=== PATIENT | female | born 1985 | race Caucasian/White ===

== ENCOUNTER 2021-07-05 17:59 | Emergency (ER) | payer OTHER ==
[~2021-07-05] VITALS: Ht 170.2 cm; Wt 109.8 kg
[~2021-07-05 17:59] MED LIST: FLINTSTONES CO1 EACH PO; FLINTSTONES1 EAC1 PO; HEARTBURN RELIE75 M1 PO; MELOXICAM15 MG PO; PROAIR HFA8.5 GM INH
[2021-07-05] MEDS ORDERED: ELURYNG VAGINA1 EACH VAGINAL (22:53)
== END 2021-07-06 00:30 | disposition home or self-care (01) ==
LOC: ED 17:59
DX: S96.912A Strain of unspecified muscle and tendon at ankle and foot level, left foot, initial encounter (principal); J45.909 Unspecified asthma, uncomplicated; Z87.891 Personal history of nicotine dependence; Z79.899 Other long term (current) drug therapy; X50.9XXA Other and unspecified overexertion or strenuous movements or postures, initial encounter
CPT/HCPCS: 73630; 99283-25

== ENCOUNTER 2022-03-13 19:26 | Emergency (ER) | payer OTHER ==
[~2022-03-13] VITALS: Ht 167.6 cm; Wt 110.5 kg
[~2022-03-13 19:26] MED LIST changes: +ELURYNG VAGINA1 EACH VAGINAL
[2022-03-13] MEDS ORDERED: PYRIDIUM200 MG PO (20:41)
[2022-03-13] MEDS ORDERED: MACRODANTIN100 MG PO (20:41)
== END 2022-03-13 20:56 | disposition home or self-care (01) ==
LOC: ED 19:26
DX: N39.0 Urinary tract infection, site not specified (principal); J45.909 Unspecified asthma, uncomplicated; Z87.891 Personal history of nicotine dependence; Z79.899 Other long term (current) drug therapy
CPT/HCPCS: 81001; 84703; 87088; 99283

== ENCOUNTER 2022-05-27 20:06 | Observation (INO) | payer OTHER ==
[~2022-05-27] VITALS: Ht 167.6 cm; Wt 113.8 kg
[~2022-05-27 20:06] MED LIST changes: +MACRODANTIN100 MG PO; +PYRIDIUM200 MG PO
--- NOTE | 2022-05-27 21:57 | EKG ---
[facility] [address] [facility] [place] [address] Signed Sinus tachycardia with short TX ST \T\ T wave abnormality, consider inferior ischemia Abnormal ECG No previous ECGs available Confirmed by JOHANNE WALLER MD ([id number]) on 05/27/2022 9:56:49 PM Electronically Signed By: JOHANNE WALLER MD 05/27/22 2157 PATIENT NAME: JUSTYN SEXTON Electrocardiogram DATE OF : 89 PHYSICIAN: JOHANNE WALLER MD REPORT #: [id number] REPORT IS CONFIDENTIAL AND NOT TO BE RELEASED WITHOUT AUTHORIZATION
--- NOTE | 2022-05-28 02:20 | NUR ---
PT ARRIVED TO CCU ROOM 127 FROM ED. PT IS ALERT AND ORIENTED, TRANSFERS SELF TO BED FROM [facility]. HR 140'S CURRENTLY. PT RESUMES HOUR LONG MED THAT HAD BEEN BROUGHT DOWN FROM ED UPON ARRIVAL. PT ADMITTED FOR ASTHMA EXACERBATION AND SEPSIS. PT REPORTS THAT SHE STARTED WHEEZING APPROX 1730 YESTERDAY EVENING AND HER INHALERS WERE NOT HELPING. LUNGS HAVE WHEEZES THROUGHOUT. RR 20. WHEN ASKED IF SHE FEELS LIKE SHE IS IMPROVING AT ALL SHE STATES "A LITTLE, LONG IM DOING THE TREATMENTS BUT SOON THEYRE DONE I START UP AGAIN". PT UP TO BATHROOM TO VOID 200ML, TOLERATED WELL, DID NOT BECOME ANY MORE LABORED THAN SHE ALREADY WAS. PT ABLE TO TALK AND CARRY ON A CONVERSAION WITHOUT DIFFICULTY, WITH NEB CURRENTLY RUNNING. CALL LIGHT IN HAND, PT STATES SHE WILL CALL FOR ASSIST GETTING UP.
--- NOTE | 2022-05-28 04:11 | NUR ---
UP TO BATHROOM TO VOID, HR UP TO 160 WHILE UP, BACK DOWN TO 130'S ONCE IN BED. VOID 250 ML LIGHT CLEAR URINE. RT IN TO DO NEB TX, ASSESSMENT DONE WELL.
--- NOTE | 2022-05-28 07:50 | NUR ---
RN IN ROOM TO ASSESS PT AND ADMINISTER SCHEDULED MEDICATIONS. PT SITTING UP IN BED BACK FROM AMBULATION FROM BATHROOM. HR REMAINS HIGH IN 130'S SITTING IN BED, PT REPORTS PAIN WITH INSPIRATION HOWEVER STATES THAT IT IS IMPROVING FROM YESTERDAY. SP02 95% ON ROOM AIR, WHEEZING EXP AND INSP THROUGHOUT ALL LUNG GRANADOS. LEFT IV SITE PAINFUL AND UNABLE TO FLUSH, DC'D. NEW IV PLACED IN LEFT AC 20G BY POCKET AND PULLEY MACHINE OPERATOR. PT AFEBRILE. REPORTS INCREASED APPETITE AND REQUESTS REGULAR DIET. BLOOD CLOTS NOTED IN URINE VOID. PT DENIES PAIN WITH URINATION HOWEVER SHE DID HAVE UTI APPROX 2 MONTHS AGO AND DID NOT FINISH HER ABX COURSE. PT STATES SHE HAS NUVARING IN PLACE FOR BIRTHCONTROL AND IS NOT DUE TO HAVE PERIOD FOR 2 WEEKS. SHE IS CONCERNED ABOUT VAGINAL BLEEDING THAT IS OCCURING - DENIES HISTORY OF THIS, DENIES NEW SEXUAL PARTNERS.
--- NOTE | 2022-05-28 09:42 | NUR ---
RN IN ROOM TO ADMINISTER SCHEDULED ABX. PT RESTING IN BED ON PHONE. IMPROVED AUDIBLE WHEEZING. PT REPORTS LUNGS FEEL TIRED - SPO2 REMAINS STABLE ON ROOM AIR. PT AMBULATES TO BATHROOM, SMALL FREQUENT VOIDS WITH VAGINAL BLEEDING IN HAT. GERMAINE PAD AND UNDERWEAR PROVIDED. PT DENIES DIZZINESS WITH AMBULATION AND TACHYCARDIA.
--- NOTE | 2022-05-28 11:20 | NUR ---
RN ROUNDING ON PT - PT RESTING IN BED ON VIDEO CALL WITH FAMILY. HR REMAINS IN 120S WITH REST, RR 27.
--- NOTE | 2022-05-28 12:00 | NUR ---
RN IN ROOM TO ASSESS PT - PT SITTING UP IN BED PLAYING GAMES ON PHONE. LUNG SOUNDS WHEEZING THROUGHOUT, SCATTERED RHONCI. WORK OF BREATHING IMPROVED, PT STATES MORE COMFORTABLE. SP02 STABLE ON ROOM AIR. VOIDING URINE SUFFICIENT. ATE 90% OF LUNCH, DENIES FURTHER NEEDS.
--- NOTE | 2022-05-28 13:56 | NUR ---
SPOKE WITH PATIENT IN ROOM. PATIENT STATES SHE LIVES WITH BOYFRIEND AND KIDS. SHE DRIVES. IS UNEMPLOYED AT THIS TIME. USES NO DME OTHER THAN NEBULIZER. NO ISSUES WITH AMBULATION. PLANS TO RETURN HOME WITH FAMILY AND FEELS SAFE TO DO SO. HAS A CAR AND CAN DRIVE SELF OR BOYFRIEND CAN DRIVE HER TO APPOINTMENTS. SHE STATES SHE IS OK FOR COST OF MEDS/FOOD/UTILITIES. SHE HAS [facility] FOR MEDS, WE DISCUSSED THAT IF SHE EVER HAS TO PAY DUE TO NOT COVERAGE BY [facility] TO HAVE PHARMAY CALL PROVIDER TO CHANGE TO A COVERED MED. SHE STATES THEY HAVE USED [facility] IN THE PAST FOR HELP WITH ELECTRIC AND SHE KNOWS HOW TO DO THAT IF NEEDED. HER ONLY ASK IS SHE HAS NO MEDICATION FOR HER NEBULIZER AND WILL NEED RX IF EXPECTED TO CONTINUE THEM. SHE HAS PCP AND IS HAPPY WITH DR PEDRAZA. STATES SHE HAS APPT May WITH HER NEXT. NO OTHER CONCERNS.
--- NOTE | 2022-05-28 15:20 | NUR ---
PT EXPRESSES DESIRE TO DC HOME THIS AFTERNOON - MD UPDATED.
[2022-05-28] MEDS ORDERED: ELURYNG VAGINA1 EACH PV (15:28)
--- NOTE | 2022-05-28 15:34 | NUR ---
medications reconciled
[2022-05-28] MEDS ORDERED: CEFDINIR300 MG PO (16:06)
[2022-05-28] MEDS ORDERED: PREDNISONE20 MG PO (16:07)
[2022-05-28] MEDS ORDERED: AZITHROMYCIN500 MG PO (16:09)
[2022-05-28] MEDS ORDERED: ALBUTEROL2.5 MG/3 M INH (16:09)
--- NOTE | 2022-05-28 16:46 | NUR ---
RN IN ROOM TO PROVIDE DC HOME INSTRUCTIONS. PT STATES UNDERSTANDING. ALL QUESTIONS ANSWERED.
== END 2022-05-28 16:50 | disposition home or self-care (01) ==
LOC: ED 20:06 → CCU 20:07
PROVIDERS: ADMIT Internal Medicine; ATTEND Internal Medicine
DX: J45.901 Unspecified asthma with (acute) exacerbation (principal); Z20.822 Contact with and (suspected) exposure to COVID-19
CPT/HCPCS: 36415; 71045; 80053; 81001; 83605; 83735; 84484; 85025; 85060; 85379; 87040; 87502; 93005; 93010; 94640; 94644; 96374; A9270; C9803; G0378; J0456; J0696; J2930; J3475; J7030; J7512; U0003

== ENCOUNTER 2025-06-24 02:37 | Emergency (ER) | payer OTHER ==
[~2025-06-24] VITALS: Ht 167.6 cm; Wt 115.0 kg
--- OUTSIDE RECORDS SUMMARY | ~2025-06-24 | XMS | Continuity of Care Document ---
Demographics + + + | Address | [address] | | | [place] [address] | + + + | Preferred Language | Unknown | + + + | Marital Status | Never | + + + | Pentecostalism Affiliation | Unknown | + + + | Race | White | + + + | Ethnic Group | Not or | + + + Author + + + | Author | [facility] | + + + | Organization | [facility] | + + + | Address | [address] | | | [place] [address] | + + + | Phone | | + + + Care Team Providers + + + + | Care Barrel Assembly Inspector Name | Role | Phone | + + + + Unavailable | Unavailable | + + + + Allergies No information. Encounters No information. Functional Status No information. Immunizations No information. Medications + + + + | date | description | facility | + + + + | (no date) | [facility] | [facility]stradiol | [facility] | + + + + | (no date) | ALBUTEROL SULFATE | [facility] | | | | [facility] | + + + + Problems No information. Procedures No information. Results/Labs No information. Social History +--------+ + + | date | description | facility | +--------+ + + Vital Signs No information."
[~2025-06-24 02:37] MED LIST changes: +ALBUTEROL2.5 MG/3 M INH; +AZITHROMYCIN500 MG PO; +CEFDINIR300 MG PO; +ELURYNG VAGINA1 EACH PV; +PREDNISONE20 MG PO
[2025-06-24] MEDS ORDERED: KETOROLAC TROMETHAMINE 15 MG/ML VIAL IV ONE (02:45)
[2025-06-24 02:57] LABS: BASOPHILS 0.6 % (0.1-1.2); EOSINOPHILS 2.9 % (0.7-5.8); LYMPHOCYTES 21.1 % (19.3-51.7); MCH 27.1 PG (25.6-32.2); MCHC 33.2 g/dL (32.2-35.5); MCV 81.6 fL (79.4-94.8); MONOCYTES 5.9 % (4.7-12.5); NEUTROPHILS 69.1 % (34.0-71.1); RBC 4.46 M/uL (3.93-5.22)
[2025-06-24] MEDS ORDERED: SODIUM CHLORIDE 0.9% 1,000 ML IV ONE (03:00)
[2025-06-24] MEDS ORDERED: LORazepam 2 MG/ML VIAL IV ONE (03:00)
[2025-06-24 03:10] LABS: BLOOD/HGB, URINE LARGE (Negative); KETONE, URINE NEGATIVE (Negative); LEUK ESTERASE, URINE NEGATIVE (negative); NITRITE, URINE NEGATIVE (negative)
[2025-06-24 03:13] LABS: ALT (SGPT) 16.0 U/L (14-59); AST (SGOT) 13.0 U/L (15-37); GLOMERULAR FILTRATION RATE,EST 81.0 mL/min (>60); PROTEIN, TOTAL 7.3 g/dL (6.4-8.2); UREA NITROGEN 16.0 mg/dL (7-18)
[2025-06-24 03:19] LABS: EPITHELIAL CELLS, URINE SQUAMOUS 4+ /lpf (0-1+)
[2025-06-24 03:20] LABS: BACTERIA, URINE RARE /hpf (negative); CASTS, URINE NONE SEEN \\lpf; CRYSTALS, URINE NONE SEEN (0-1+); REFLEX CULTURE, URINE No (No)
[2025-06-24 03:24] LABS: AMPHETAMINES, URINE POSITIVE (NEGATIVE); BARBITURATES, URINE NEGATIVE (NEGATIVE); BENZODIAZEPINE, URINE NEGATIVE (NEGATIVE); CANNABINOID, URINE POSITIVE (NEGATIVE); COCAINE, URINE NEGATIVE (NEGATIVE); ECSTASY, URINE POSITIVE (NEGATIVE); FENTANYL, URINE NEGATIVE (NEGATIVE); METHADONE, URINE NEGATIVE (NEGATIVE); OPIATES, URINE NEGATIVE (NEGATIVE); OXYCODONE, URINE NEGATIVE (NEGATIVE); PHENCYCLIDINE, URINE NEGATIVE (NEGATIVE)
[2025-06-24] MEDS ORDERED: POTASSIUM CHLORIDE 10 MEQ TABCR PO ONE (03:30)
[2025-06-24] MEDS ORDERED: BUPROPION XL300 MG PO (03:59)
[2025-06-24] MEDS ORDERED: MONTELUKAST SOD10 MG PO (04:00)
[2025-06-24] MEDS ORDERED: OLANZapine 10 MG VIAL IM ONE (13:00)
[2025-06-24] MEDS ORDERED: levETIRAcetam 500 MG TAB PO ONE (13:00)
[2025-06-24 13:39] VITALS: BP 136/76
== END 2025-06-24 13:42 | disposition short-term general hospital (02) ==
LOC: ED 02:37
PROVIDERS: Family Medicine
DX: S06.6XAA Traumatic subarachnoid hemorrhage with loss of consciousness status unknown, initial encounter (principal); R56.9 Unspecified convulsions; J45.909 Unspecified asthma, uncomplicated; W19.XXXA Unspecified fall, initial encounter; Y92.002 Bathroom of unspecified non-institutional (private) residence as the place of occurrence of the external cause
CPT/HCPCS: 36415; 70450; 70460; 80053; 80307; 81001; 83735; 84703; 85025; 96365; 96375; 99291; 99292; A9270; J1885; J1953; J2060; J7030; Q9967